=== PATIENT | male | born 1995 | race Caucasian/White ===

== ENCOUNTER 2019-02-17 05:34 | Inpatient (IN) | payer MEDICAID, OTHER ==
[~2019-02-17] VITALS: Ht 180.3 cm; Wt 90.9 kg
[~2019-02-17 05:34] MED LIST: FAMO-96 PO; IBUP800T48 PO
[2019-02-17 05:36] VITALS: Ht 180.3 cm; Wt 90.9 kg
[2019-02-17] MEDS ORDERED: IBUPROFEN 800 MG TAB PO ONE (06:30)
[2019-02-17] MEDS ORDERED: ONDANSETRON 4 MG INJ IV STA (07:27)
[2019-02-17] MEDS ORDERED: morphine 4 MG/ML VIAL IV STA (07:27)
--- NOTE | 2019-02-17 07:49 | ERD ---
ER Documentation Chief Complaint Chief Complaint fell face 1st from skateboarding yesterday AM; R arm hurts HPI 23-year-old male presenting with pain to his right elbow after a fall off a s kateboard. Patient also has some pain to his right hand. Left hand dominant. This happened an hour prior to my evaluation he has not taken medications for symptoms. Denies medical problems. NKDA. Surgical history denies. Social history smokes , one occasionally. ROS All systems reviewed and are negative except as per history of present illness. Medications Home Meds Active Scripts Famotidine* (Pepcid*) 20 Mg Tablet, 20 MG PO BID, #20 TAB Prov:WU DODD PA-C 02/16/16 Ibuprofen* (Motrin*) 800 Mg Tab, 800 MG PO Q6H PRN for PAIN AND OR ELEVATED TEMP, #30 TAB Prov:MARY BURGESS AGILE JAVA DEVELOPER 11/25/15 Allergies Allergies: Coded Allergies: No Known Allergy (Unverified , 02/16/16) PMhx/Soc Medical and Surgical Hx: pt denies Medical Hx, pt denies Surgical Hx Hx Alcohol Use: No Hx Substance Use: No Hx Tobacco Use: No Smoking Status: Never smoker FmHx Family History: No diabetes, No coronary disease, No other Physical Exam Vitals Vital Signs Date Temp Pulse Resp B/P (MAP) Pulse Ox O2 O2 Flow FiO2 Time Delivery Rate 02/17/19 98.0 69 18 131/78 98 05:36 (95) Physical Exam GENERAL: The patient is well-appearing, well-nourished, in no acute distress CHEST: Clear to auscultation bilaterally. There are no rales, wheezes or rhonchi. HEART: Regular rate and rhythm. No murmurs, clicks, rubs or gallops. EXTREMITIES: Tender to palpation to right elbow. Limited range of motion secondary to pain. Compartments soft to the distal extremity pulses intact. NEUROLOGIC: Alert and oriented. Cranial nerves II through XII intact. Motor strength in all 4 extremities with 5 out of 5 strength. Sensation grossly intact. Normal speech and gait. SKIN: Extensive swelling noted over the olecranon with superficial abrasions. Results 24 hrs Current Medications Medications Dose Sig/Vick Start Time Status Last (Trade) Ordered Route PRN Stop Time Admin Dose Reason Admin Ibuprofen 800 mg ONCE ONCE 02/17/19 DC 02/17/19 (Motrin) PO 06:30 06:23 02/17/19 06:31 Morphine 4 mg ONCE STAT 02/17/19 DC Sulfate IV 07:27 (morphine) 02/17/19 07:30 Ondansetron 4 mg ONCE STAT 02/17/19 DC HCl (Zofran IV 07:27 Inj) 02/17/19 07:30 Procedures/MDM DIAGNOSTIC IMAGING REPORT Patient: GREYSON ARANDA JR : 1995 Age: 23 Sex: M MR #: [id number] DOS: 02/17/19 0611 Ordering MD: KEDAR SPEARS PA-C Location: [facility] Room/Bed: PROCEDURE: XR Right Elbow. CLINICAL INDICATION: Right elbow pain. Status post injury. TECHNIQUE: 4 views of the right elbow are available for review COMPARISON: None available FINDINGS: There is a transverse intra-articular fracture of the proximal olecranon with dye stasis of the fracture fragments measuring 1.67 meters. There is a displaced medial butterfly fragment. Extensive overlying soft tissue swelling is seen. There is minimal prominence of the anterior fat pad. IMPRESSION: Comminuted displaced intra-articular proximal olecranon fracture DIAGNOSTIC IMAGING REPORT Patient: GREYSON ARANDA JR : 1995 Age: 23 Sex: M MR #: [id number] DOS: 02/17/19 0611 Ordering MD: KEDAR SPEARS PA-C Location: [facility] Room/Bed: PROCEDURE: XR right Wrist. CLINICAL INDICATION: wrist pain TECHNIQUE: AP, lateral and oblique views of the wrist were performed. COMPARISON: No prior studies are available for comparison. FINDINGS: There is a nondisplaced fracture involving the superior medial aspect of the triquetrum. No additional fractures are clearly identified The bones appear well mineralized. The joint spaces are well maintained. The soft tissues are normal. IMPRESSION: There is a nondisplaced fracture involving the superior medial aspect of the triquetrum. This could be further characterized with CT if indicated. No additional fractures are clearly identified. RPTAT:AAJJ ER Course: Dr. Strong was consulted for surgical intervention. Patient will be admitted for higher level care and surgical intervention. Preop studies were ordered and patient was given IV morphine. MDM: 23-year-old male presenting with findings consistent with olecranon f racture. Patient had a large displacement of 15.6 mm the patient will be admitted for surgical intervention under the care of Dr. Tolu Strong. Dr. Dakota Lipscomb will help facilitate with inpatient admission. Patient understands reason for admission. All questions answered at discharge. MARIAJOSE SPEARS PA-C Feb 17, 2019 07:49
[2019-02-17] MEDS ORDERED: ONDANSETRON 4 MG INJ IV PRN ×2 (08:30→12:30)
[2019-02-17] MEDS ORDERED: ACETAMINOPHEN 325 MG TAB PO PRN ×2 (08:30→12:30)
--- NOTE | 2019-02-17 12:13 | HP ---
Date/Time of Note Date/Time of Note DATE: 02/17/19 TIME: 12:08 Assessment/Plan VTE Prophylaxis SCD applied (from Nsg): Yes Pharmacological prophylaxis: LMWH Lines/Catheters IV Catheter Type (from Nrsg): Saline Lock Assessment/Plan Hospital Course SUBJECTIVE: Lying in bed, currently having no pain. Right elbow with diffuse swelling/open skin with mild bleeding. OBJECTIVE: Vital signs-see below PHYSICAL EXAM: Constitutional: Adequately built,not in acute distress. HEENT: Head atraumatic and normocephalic. Eyes: Extraocular muscles intact. Anicteric sclerae. Pupils equal bilaterally, reactive to light. NECK: Supple without lymph node. CHEST: Clear and good breath sounds equally. No wheezing. No rhonchi. HEART: S1, S2. Regular rate and rhythm. ABDOMEN: Soft/non tender with no rebound tenderness. Bowel sounds were present. EXTREMITIES: Right elbow status post fall with swelling/bruising/open skin with mild bleeding. Normal pulses. NEUROLOGIC: Alert and oriented x3. No focal deficit. No sensory deficit. PSYCHOSOCIAL: No signs of depression. INTEGUMENTARY: No open wounds. ASSESSMENT AND PLAN:23 yo M w/ no PMH here after falling off a skateboard w/resultant Rt elbow fracture.. Comminuted displaced intra-articular proximal olecranon fracture -Orthopedic consultation with Dr. Strong has been already requested. -Continue nonweightbearing, pain control, dvt ppx -We will give empiric ABX in light of open wounds Leukocytosis, likely reactive to fracture -Monitor. DVT prophylaxis: Lovenox Rest of the management depend on clinical course. Approximately 60-minute was spent on this history and physical. Patient was seen in collaboration with Result Diagram: 02/17/19 0740 Results 24hrs Laboratory Tests Test 02/17/19 07:40 White Blood Count 12.0 H Red Blood Count 5.13 Hemoglobin 14.8 Hematocrit 44.3 Mean Corpuscular Volume 86.4 Mean Corpuscular Hemoglobin 28.8 L Mean Corpuscular Hemoglobin Concent 33.4 Red Cell Distribution Width 12.0 Platelet Count 232 Mean Platelet Volume 10.8 H Immature Granulocytes % 0.300 Neutrophils % 71.6 Lymphocytes % 21.1 Monocytes % 5.9 Eosinophils % 0.6 Basophils % 0.5 Nucleated Red Blood Cells % 0.0 Immature Granulocytes # 0.040 H Neutrophils # 8.6 H Lymphocytes # 2.5 Monocytes # 0.7 Eosinophils # 0.1 Basophils # 0.1 Nucleated Red Blood Cells # 0.0 Prothrombin Time 12.8 Prothrombin Time Ratio 1.0 INR International Normalized Ratio 0.95 Activated Partial Thromboplast Time 27.0 HPI/ROS Admit Date/Time Admit Date/Time Feb 17, 2019 at 08:21 Hx of Present Illness 23-year-old male with no past medical history, who presented to the emergency room with right elbow pain/swelling after he fell off a skating board. Reji bourne's x-ray showed Comminuted displaced intra-articular proximal olecranon fracture. Orthopedic consultation was called from the emergency room. Patient was given pain medications. Patient denied seeing any metal objects on the fracture site. Patient's labs showed white count 12,000 otherwise unremarkable. No fevers. Patient denied any head trauma. He denied chest pain, palpitation, shortness of breath, nausea, vomiting, fever, chills, bowel or bladder incontinence or other constitutional symptoms. ROS A 12 point review of system was assessed and is negative other than what is mentioned in the HPI. PMH/Family/Social Past Medical History None Medications Current Medications Ondansetron HCl (Zofran Inj) 4 mg BRIDGE ORDER PRN IV NAUSEA/VOMITING; Start 02/17/19 at 08:30; Stop 02/18/19 at 08:29 Acetaminophen (Tylenol Tab) 650 mg ER BRIDGE PRN PO .MILD PAIN 1-3 OR TEMP; Start 02/17/19 at 08:30; Stop 02/18/19 at 08:29 Coded Allergies: No Known Allergy (Unverified , 02/16/16) Past Surgical History None Social History Denied history of alcohol, smoking or illicit drug use Smoking Status: Never smoker Exam/Review of Systems Vital Signs Vitals Vital Signs Date Temp Pulse Resp B/P (MAP) Pulse Ox O2 O2 Flow FiO2 Time Delivery Rate 02/17/19 97.9 85 16 122/59 99 Room Air 11:09 (80) LYNSEY TREVIZO NP Feb 17, 2019 12:13
[2019-02-17 12:16] VITALS: BP 114/55; PULSE 80; RESP 18
[2019-02-17] MEDS ORDERED: morphine 2 MG INJ IV PRN (12:30)
[2019-02-17] MEDS ORDERED: DOCUSATE SODIUM 100 MG CAP PO PRN (12:30)
[2019-02-17] MEDS: FAMOTIDINE 20 MG TAB PO SCH ×2 (12:30→21:35)
[2019-02-17] MEDS ORDERED: NACL 0.9% 3 ML SYG IV SCH (12:30)
[2019-02-17] MEDS: SOD CHLORIDE 0.9% 1,000 ML IV SCH (13:00)
[2019-02-17 15:05] VITALS: BP 118/71; PULSE 69; RESP 19
[2019-02-17] MEDS: CEFAZOLIN 1 GM/50 ML (PMX) 50 ML IVPB SCH ×2 (15:21→21:35)
[2019-02-17] MEDS: IBUPROFEN 600 MG TAB PO SCH ×2 (17:53→23:57)
[2019-02-17 20:35] VITALS: BP 120/61; PULSE 74; RESP 18
[2019-02-18] MEDS: SOD CHLORIDE 0.9% 1,000 ML IV SCH ×2 (01:44→15:20)
[2019-02-18 02:18] VITALS: BP 103/57; PULSE 63; RESP 18
[2019-02-18] MEDS: CEFAZOLIN 1 GM/50 ML (PMX) 50 ML IVPB SCH ×3 (05:54→22:02)
[2019-02-18] MEDS: IBUPROFEN 600 MG TAB PO SCH ×4 (05:55→23:51)
[2019-02-18 08:18] VITALS: BP 112/63; PULSE 56; RESP 18
[2019-02-18] MEDS: ENOXAPARIN 40 MG/0.4 ML SYG SC SCH (09:00)
--- NOTE | 2019-02-18 11:03 | PN ---
Date/Time of Note Date/Time of Note DATE: 02/18/19 TIME: 11:01 Assessment/Plan VTE Prophylaxis Risk score (from Ns)>0 risk: 1 SCD applied (from Ns): No SCD contraindicated: other Pharmacological prophylaxis: LMWH Lines/Catheters IV [facility] Saline Lock Urinary Cath still in place: No Assessment/Plan Hospital Course SUBJECTIVE: No acute overnight episodes. Pending orthopedic evaluation OBJECTIVE: Vital signs-see below PHYSICAL EXAM: Constitutional: Adequately built,not in acute distress. HEENT: Head atraumatic and normocephalic. Eyes: Extraocular muscles intact. Anicteric sclerae. Pupils equal bilaterally, reactive to light. NECK: Supple without lymph node. CHEST: Clear and good breath sounds equally. No wheezing. No rhonchi. HEART: S1, S2. Regular rate and rhythm. ABDOMEN: Soft/non tender with no rebound tenderness. Bowel sounds were present. EXTREMITIES: Right elbow status post fall with swelling/bruising/open skin with mild bleeding. Normal pulses. NEUROLOGIC: Alert and oriented x3. No focal deficit. No sensory deficit. PSYCHOSOCIAL: No signs of depression. INTEGUMENTARY: No open wounds. ASSESSMENT AND PLAN:23 yo M w/ no PMH here after falling off a skateboard w/resultant Rt elbow fracture.. Comminuted displaced intra-articular proximal olecranon fracture -Orthopedic consultation with Dr. Strong has been already requested=> and in case review -Continue nonweightbearing, pain control, dvt ppx -cont.empiric ABX in light of open wounds Leukocytosis, likely reactive to fracture -Resolved DVT prophylaxis: Lovenox Disposition: Follow-up orthopedic recommendations Patient was seen in collaboration with Result Diagram: 02/18/19 0638 02/18/19 0638 Results 24hrs Laboratory Tests Test 02/18/19 06:38 White Blood Count 9.4 # Red Blood Count 4.76 Hemoglobin 13.6 L Hematocrit 41.1 L Mean Corpuscular Volume 86.3 Mean Corpuscular Hemoglobin 28.6 L Mean Corpuscular Hemoglobin Concent 33.1 Red Cell Distribution Width 11.9 Platelet Count 207 Mean Platelet Volume 11.4 H Immature Granulocytes % 0.400 Neutrophils % 52.4 Lymphocytes % 38.1 Monocytes % 7.4 Eosinophils % 1.2 Basophils % 0.5 Nucleated Red Blood Cells % 0.0 Immature Granulocytes # 0.040 H Neutrophils # 4.9 Lymphocytes # 3.6 H Monocytes # 0.7 Eosinophils # 0.1 Basophils # 0.1 Nucleated Red Blood Cells # 0.0 Sodium Level 143 Potassium Level 3.9 Chloride Level 109 Carbon Dioxide Level 25 Anion Gap 9 Blood Urea Nitrogen 9 Creatinine 0.86 Est Glomerular Filtrat Rate mL/min > 60 Glucose Level 92 Calcium Level 9.3 Magnesium Level 2.1 Exam/Review of Systems Exam Vitals Vital Signs Date Temp Pulse Resp B/P (MAP) Pulse Ox O2 O2 Flow FiO2 Time Delivery Rate 02/18/19 97.8 56 18 112/63 97 Room Air 08:18 (79) Intake and Output 02/17/19 02/17/19 02/18/19 1515:00 23:00 07:00 IntakeIntake Total 350 ml 995 ml BalanceBalance 350 ml 995 ml Results Results 24hrs Laboratory Tests Test 02/18/19 06:38 White Blood Count 9.4 # Red Blood Count 4.76 Hemoglobin 13.6 L Hematocrit 41.1 L Mean Corpuscular Volume 86.3 Mean Corpuscular Hemoglobin 28.6 L Mean Corpuscular Hemoglobin Concent 33.1 Red Cell Distribution Width 11.9 Platelet Count 207 Mean Platelet Volume 11.4 H Immature Granulocytes % 0.400 Neutrophils % 52.4 Lymphocytes % 38.1 Monocytes % 7.4 Eosinophils % 1.2 Basophils % 0.5 Nucleated Red Blood Cells % 0.0 Immature Granulocytes # 0.040 H Neutrophils # 4.9 Lymphocytes # 3.6 H Monocytes # 0.7 Eosinophils # 0.1 Basophils # 0.1 Nucleated Red Blood Cells # 0.0 Sodium Level 143 Potassium Level 3.9 Chloride Level 109 Carbon Dioxide Level 25 Anion Gap 9 Blood Urea Nitrogen 9 Creatinine 0.86 Est Glomerular Filtrat Rate mL/min > 60 Glucose Level 92 Calcium Level 9.3 Magnesium Level 2.1 Medications Medication Current Medications Sodium Chloride 1,000 ml @ 75 mls/hr [id number] IV Last administered on 02/18/19at 01:44; Admin Dose 75 MLS/HR; Start 02/17/19 at 12:13 IV Flush (NS 3 ml) 3 ml PER PROTOCOL IV ; Start 02/17/19 at 12:30 Ondansetron HCl (Zofran Inj) 4 mg Q6H PRN IV NAUSEA/VOMITING; Start 02/17/19 at 12:30 Acetaminophen (Tylenol Tab) 650 mg Q6H PRN PO .PAIN 1-3 OR TEMP; Start 02/17/19 at 12:30 Morphine Sulfate (morphine) 2 mg Q4H PRN IV .SEVERE PAIN 7-10; Start 02/17/19 at 12:30 Docusate Sodium (Colace) 100 mg Q12H PRN PO .CONSTIPATION; Start 02/17/19 at 12:30 Enoxaparin Sodium (Lovenox) 40 mg DAILY SC ; Start 02/18/19 at 09:00 Cefazolin Sodium 50 ml @ 100 mls/hr Q8 IVPB Last administered on 02/18/19at 05:54; Admin Dose 100 MLS/HR; Start 02/17/19 at 14:00 Ibuprofen (Motrin) 600 mg Q6 PO Last administered on 02/18/19at 05:55; Admin Dose 600 MG; Start 02/17/19 at 18:00; Stop 02/19/19 at 12:01 Famotidine (Pepcid) 20 mg BID PO Last administered on 02/17/19at 21:35; Admin Dose 20 MG; Start 02/17/19 at 12:30 LYNSEY TREVIZO NP Feb 18, 2019 11:02
[2019-02-18] MEDS: FAMOTIDINE 20 MG TAB PO SCH ×2 (11:38→20:22)
--- NOTE | 2019-02-18 12:46 | QN ---
Documentation Comment Patient and family getting upset for awaiting for orthopedic evaluation. They are planning on leaving AGAINST MEDICAL ADVICE. I spoke with Dr. Strong on the phone who told me that he will see patient in the next 2 to 4 hours. This message was conveyed to patient and family and they agreed to stay. LYNSEY TREVIZO NP Feb 18, 2019 12:46
[2019-02-18 14:25] VITALS: BP 112/63; PULSE 57; RESP 18
--- NOTE | 2019-02-18 20:02 | CONS ---
DATE OF ADMISSION: 02/17/2019 DATE OF CONSULTATION: ORTHOPEDIC SURGICAL CONSULTATION HISTORY OF PRESENT ILLNESS: The patient is a 23-year-old left hand dominant male who was admitted on 02/17/2019 when he came to the emergency room complaining of painful swelling and deformity involvin g his right elbow. He obviously had sustained an injury to his right elbow after falling off his ska teboard. Following initial evaluation in the emergency room, the right elbow was immobilized in a long arm pos terior splint and the patient was admitted. PHYSICAL EXAMINATION: My examination revealed a 23-year-old male who was not in any acute distress. His right upper extremity was immobilized in a posterior long arm posterior splint. There was no ob vious neurovascular compromise; however, he seems to have some weakness in the interosseous muscles o f the right hand. DIAGNOSTIC STUDIES: X-rays of the right elbow revealed a displaced olecranon fracture of the right e lbow. DIAGNOSTIC IMPRESSION: Olecranon fracture of the right elbow, displaced. TREATMENT PLAN: To surgery for open reduction and internal fixation in earliest convenience. Dictated By: BAILEY SHEIKH MD IK/NTS Conf#: [id number] DID#: [id number] CC: LONNIE HOWELL MD;*EndCC*
[2019-02-18 20:31] VITALS: BP 121/57; PULSE 60; RESP 18
[2019-02-19] VITALS (15 sets, daily range): BP systolic 104–126; BP diastolic 49–72; PULSE 60–82; RESP 13–23
[2019-02-19] MEDS: CEFAZOLIN 1 GM/50 ML (PMX) 50 ML IVPB SCH ×3 (05:35→23:43)
[2019-02-19] MEDS: SOD CHLORIDE 0.9% 1,000 ML IV SCH (05:35)
[2019-02-19] MEDS: IBUPROFEN 600 MG TAB PO SCH (05:36)
[2019-02-19] MEDS: FAMOTIDINE 20 MG TAB PO SCH ×2 (08:48→21:26)
[2019-02-19] MEDS: ENOXAPARIN 40 MG/0.4 ML SYG SC SCH (08:48)
--- NOTE | 2019-02-19 12:24 | PN ---
Date/Time of Note Date/Time of Note DATE: 02/19/19 TIME: 12:21 Assessment/Plan VTE Prophylaxis Risk score (from Ns)>0 risk: 1 SCD applied (from Ns): No SCD contraindicated: other Pharmacological prophylaxis: LMWH Lines/Catheters [facility] Saline Lock Urinary Cath still in place: No Assessment/Plan Hospital Course SUBJECTIVE: No acute overnight episodes. For ORIF today OBJECTIVE: Vital signs-see below PHYSICAL EXAM: Constitutional: Adequately built,not in acute distress. HEENT: Head atraumatic and normocephalic. Eyes: Extraocular muscles intact. Anicteric sclerae. Pupils equal bilaterally, reactive to light. NECK: Supple without lymph node. CHEST: Clear and good breath sounds equally. No wheezing. No rhonchi. HEART: S1, S2. Regular rate and rhythm. ABDOMEN: Soft/non tender with no rebound tenderness. Bowel sounds were present. EXTREMITIES: Right elbow status post fall with swelling/bruising/open skin with mild bleeding. Normal pulses. NEUROLOGIC: Alert and oriented x3. No focal deficit. No sensory deficit. PSYCHOSOCIAL: No signs of depression. INTEGUMENTARY: No open wounds. ASSESSMENT AND PLAN:23 yo M w/ no PMH here after falling off a skateboard w/resultant Rt elbow fracture.. Acute Displaced Right olecranon fracture -For ORIF today -post op abx,atc,weightbearing per ortho -pain control Leukocytosis, likely reactive to fracture -Resolved DVT prophylaxis: Lovenox Disposition: Follow-up orthopedic recommendations pot operatively Patient was seen in collaboration with Given patient's medical condition, patient is at a low to intermediate risk for any untoward medical events for surgery. However, benefit likely outweigh risks and recommended to have surgical intervention. Result Diagram: 02/18/19 0638 02/18/19 0638 Exam/Review of Systems Exam Vitals Vital Signs Date Temp Pulse Resp B/P (MAP) Pulse Ox O2 O2 Flow FiO2 Time Delivery Rate 02/19/19 98.8 80 18 104/66 96 Room Air 09:35 (79) Intake and Output 02/18/19 02/18/19 02/19/19 1515:00 23:00 07:00 IntakeIntake Total 1645 ml 1100 ml BalanceBalance 1645 ml 1100 ml Medications Medication Current Medications Sodium Chloride 1,000 ml @ 75 mls/hr [id number] IV Last administered on 02/19/19at 05:35; Admin Dose 75 MLS/HR; Start 02/17/19 at 12:13 IV Flush (NS 3 ml) 3 ml PER PROTOCOL IV ; Start 02/17/19 at 12:30 Ondansetron HCl (Zofran Inj) 4 mg Q6H PRN IV NAUSEA/VOMITING; Start 02/17/19 at 12:30 Acetaminophen (Tylenol Tab) 650 mg Q6H PRN PO .PAIN 1-3 OR TEMP; Start 02/17/19 at 12:30 Morphine Sulfate (morphine) 2 mg Q4H PRN IV .SEVERE PAIN 7-10; Start 02/17/19 at 12:30 Docusate Sodium (Colace) 100 mg Q12H PRN PO .CONSTIPATION; Start 02/17/19 at 12:30 Enoxaparin Sodium (Lovenox) 40 mg DAILY SC ; Start 02/18/19 at 09:00 Cefazolin Sodium 50 ml @ 100 mls/hr Q8 IVPB Last administered on 02/19/19at 05:35; Admin Dose 100 MLS/HR; Start 02/17/19 at 14:00 Famotidine (Pepcid) 20 mg BID PO Last administered on 02/18/19at 20:22; Admin Dose 20 MG; Start 02/17/19 at 12:30 LYNSEY TREVIZO NP Feb 19, 2019 12:24
[2019-02-19] MEDS ORDERED: POLYMYXIN/BACITRACIN 1L IRRIG ONE (12:28)
[2019-02-19] MEDS ORDERED: BUPIVACAINE 0.25%/EPI (SDV) 30 ML INJ ONE (12:28)
--- NOTE | 2019-02-19 12:32 | HPN ---
Date/Time of Note Date/Time of Note DATE: 02/19/19 TIME: 12:31 JAMIE SHEIKH MD Feb 19, 2019 12:32
[2019-02-19] MEDS ORDERED: PROPOFOL 20 ML ONE (12:43)
[2019-02-19] MEDS ORDERED: MIDAZOLAM 1 MG/ML 2 ML INJ ONE ×2 (12:43→15:21)
[2019-02-19] MEDS ORDERED: ROCURONIUM 50 MG INJ ONE (12:43)
[2019-02-19] MEDS ORDERED: FENTAnyl 50 MCG/ML VIAL ONE ×2 (12:44)
[2019-02-19] MEDS ORDERED: LIDOCAINE 1% (MDV) 20 ML INJ ONE (13:00)
--- NOTE | 2019-02-19 13:52 | PREAC ---
Date/Time of Note Date/Time of Note DATE: 02/19/19 TIME: 12;10 Anesthesia Eval and Record Evaluation Time Pre-Procedure Interview DATE: 02/19/19 TIME: 13:29 Age 23 Sex male NPO: 8 hrs Preoperative diagnosis right =Elbow olecronon fracture Planned procedure ORIF Right Olecronon Past Medical History Past Medical History: None Surgery & Anesthesia Issues No known issue Meds Anticoagulation: No Beta Yamileth within 24 hr: No Reason Beta Yamileth not given: Pt. not on B-Yamileth Active Scripts Famotidine* (Pepcid*) 20 Mg Tablet, 20 MG PO BID, #20 TAB Prov:WU DODD PA-C 02/16/16 Ibuprofen* (Motrin*) 800 Mg Tab, 800 MG PO Q6H PRN for PAIN AND OR ELEVATED TEMP, #30 TAB Prov:MARY BURGESS TELEVISION REPORTER 11/25/15 Current Medications Sodium Chloride 1,000 ml @ 75 mls/hr [id number] IV Last administered on 02/19/19at 05:35; Admin Dose 75 MLS/HR; Start 02/17/19 at 12:13 IV Flush (NS 3 ml) 3 ml PER PROTOCOL IV ; Start 02/17/19 at 12:30 Ondansetron HCl (Zofran Inj) 4 mg Q6H PRN IV NAUSEA/VOMITING; Start 02/17/19 at 12:30 Acetaminophen (Tylenol Tab) 650 mg Q6H PRN PO .PAIN 1-3 OR TEMP; Start 02/17/19 at 12:30 Morphine Sulfate (morphine) 2 mg Q4H PRN IV .SEVERE PAIN 7-10; Start 02/17/19 at 12:30 Docusate Sodium (Colace) 100 mg Q12H PRN PO .CONSTIPATION; Start 02/17/19 at 12:30 Enoxaparin Sodium (Lovenox) 40 mg DAILY SC ; Start 02/18/19 at 09:00 Cefazolin Sodium 50 ml @ 100 mls/hr Q8 IVPB Last administered on 02/19/19at 05:35; Admin Dose 100 MLS/HR; Start 02/17/19 at 14:00 Famotidine (Pepcid) 20 mg BID PO Last administered on 02/18/19at 20:22; Admin Dose 20 MG; Start 02/17/19 at 12:30 Meds reviewed: Yes Allergies Coded Allergies: No Known Allergy (Unverified , 02/16/16) Allergies Reviewed: Yes Labs/Studies Labs Reviewed: Reviewed by anesthesiologist Result Diagram: 02/18/1963702/18/19637 test: N/A Pre-procedure Exam Last vitals Vital Signs Date Temp Pulse Resp B/P (MAP) Pulse Ox O2 O2 Flow FiO2 Time Delivery Rate 02/19/19 98.8 80 18 104/66 96 Room Air 09:35 (79) Airway: Adequate thyromental dist Mallampati: Mallampati III Teeth: Normal Lung: Normal Heart: Normal ASA Physical Status ASA physical status: 2 Emergency: None Planned Anesthetic General/MAC: ETT Planned Pain Management Single shot nerve block Pre-operative Attestations Prior to commencing anesthesia and surgery, the patient was re-evaluated, there was verification of: *The patient's identity *The results of appropriate recent lab work and preoperative vital signs *The above evaluation not changing prior to induction *Anesthetic plan, risk benefits, alternative and complications discussed with patient/family; questions answered; patient/family understands, accepts and wishes to proceed. KEISHA HAZEL MD Feb 19, 2019 13:40
[2019-02-19] MEDS ORDERED: LABETALOL HCL 20MG INJ IV PRN (14:00)
[2019-02-19] MEDS ORDERED: MIDAZOLAM 1 MG/ML 2 ML INJ IV PRN (14:00)
[2019-02-19] MEDS ORDERED: ALBUMIN HUMAN 5% 250 ML IV PRN (14:00)
[2019-02-19] MEDS ORDERED: ALBUTEROL 0.083% (NEB) 2.5 MG/3 ML AMP HHN PRN (14:00)
[2019-02-19] MEDS ORDERED: METOCLOPRAMIDE 10 MG INJ IV PRN (14:00)
[2019-02-19] MEDS ORDERED: HYDROmorphONE 1 MG/5 ML IV SYRINGE IV PRN (14:00)
[2019-02-19] MEDS ORDERED: morphine 2 MG INJ IV PRN (14:00)
[2019-02-19] MEDS ORDERED: KETOROLAC 30 MG INJ IV PRN (14:00)
[2019-02-19] MEDS ORDERED: MEPERIDINE 25 MG INJ IV PRN (14:00)
[2019-02-19] MEDS ORDERED: hydrALAzine 20 MG INJ IV PRN (14:00)
[2019-02-19] MEDS ORDERED: EPHEDrine 25 MG/5 ML SYG IV PRN (14:00)
[2019-02-19] MEDS ORDERED: IPRATROPIUM (NEB) 0.5 MG/2.5 ML AMP HHN PRN (14:00)
[2019-02-19] MEDS ORDERED: FENTAnyl 50 MCG/ML VIAL IV PRN (14:00)
[2019-02-19] MEDS ORDERED: DIPHENHYDRAMINE 50 MG INJ IV PRN (14:00)
[2019-02-19] MEDS ORDERED: ONDANSETRON 4 MG INJ IV PRN (14:00)
[2019-02-19] MEDS ORDERED: DEXAMETHASONE 4 MG/ML 5 ML INJ ONE (14:18)
[2019-02-19] MEDS ORDERED: ONDANSETRON 4 MG INJ ONE (14:18)
[2019-02-19] MEDS ORDERED: SUGAMMADEX SODIUM 200 MG/2 ML VIAL IV ONE (14:18)
[2019-02-19] MEDS ORDERED: BUPIVACAINE 0.25% (MPF) 30 ML INJ ONE (14:27)
[2019-02-19] MEDS ORDERED: ROPIVACAINE 0.2% 20 ML VIAL ONE (14:28)
[2019-02-19] MEDS ORDERED: morphine 4 MG/ML VIAL IV PRN (15:00)
[2019-02-19] MEDS ORDERED: HYDROCODONE/APAP (5/325) TAB PO PRN (15:00)
[2019-02-19] MEDS ORDERED: NACL 0.9% 3 ML SYG IV SCH (15:00)
--- NOTE | 2019-02-19 15:22 | SIPON ---
Date/Time of Note Date/Time of Note DATE: 02/19/19 TIME: 15:09 Operative Report Preoperative Diagnosis fracture of olecranon process of Rt. elbow Postoperative Diagnosis same Operation/Procedure Performed O.R.I.F. of olecranon fracture of Rt. elbow Surgeon see signature line administrative assistant data entry none Second assist: A Anesthesia: general Estimated blood loss: 10 - 50 ml's Transfusion Required none Specimen none Grafts/Implants k wires and flexible wiresnone Complications none JAMIE SHEIKH MD Feb 19, 2019 15:22
--- NOTE | 2019-02-19 15:42 | PAC ---
Date/Time of Note Date/Time of Note DATE: 02/19/19 TIME: 1620 Post-Anesthesia Notes Post-Anesthesia Note Last documented vital signs Vital Signs Date Temp Pulse Resp B/P (MAP) Pulse Ox O2 O2 Flow FiO2 Time Delivery Rate 02/19/19 98.8 80 18 104/66 96 Room Air 09:35 (79) Activity: WNL Respiratory function: WNL Cardiovascular function: WNL Mental status: Baseline Pain reasonably controlled: Yes Hydration appropriate: Yes Nausea/Vomiting absent: Yes KEISHA HAZEL MD Feb 19, 2019 15:42
[2019-02-19] MEDS: D5W-0.45 NACL + KCL 20 MEQ 1,000 ML IV SCH (17:16)
--- NOTE | 2019-02-19 18:16 | OPR ---
DATE OF OPERATION: 02/19/2019 PREOPERATIVE DIAGNOSIS: Olecranon fracture of the right elbow. POSTOPERATIVE DIAGNOSIS: Olecranon fracture of the right elbow. OPERATION PERFORMED: Open reduction and internal fixation of the olecranon fracture of the right elb ow. ANESTHESIA: General anesthesia. SURGEON: Bailey Sheikh MD PROCEDURE AND FINDINGS: Under general anesthesia, the patient was placed in supine position upon the operating table. A tourniquet was placed over the proximal portion of the right arm and was inflate d up to 250 mmHg prior to the procedure. The right elbow was approached through the posterior midline longitudinal incision. By blunt and sha rp dissection, the obvious fracture involving the olecranon of the right elbow along with the proxima l shaft of the right ulna was exposed. First, a small drill opening was made using a proper size dri ll. An 18 gauge flexible wire was placed through this opening and ready for further procedure. Atte ntion was then directed to the obvious fracture. By blunt and sharp dissection, the fracture margin was clearly identified and exposed and cleared of any blood clots. With the elbow in extension, the fracture was reduced to exact alignment and then this was held with bone clamp. Two K-wire was then introduced to the fractured segment and then into the main intramedullary space of the proximal ulna with the fracture in a reduced position. The previously threaded flexible wire was then put around t his 2 parallel K-wire and was in the [id number] position and then this flexible wire was tighten ed. After confirming satisfactory alignment of the fracture and proper position of the fixation K-wi res, the further repair of the soft tissue was carried out around the fracture site and then K-wire w as bent at the proximal portion and was shortened. After confirming satisfactory alignment of the fr acture and proper position of the fixation device and after irrigation and hemostasis, closure of the incision was carried out using 0 Vicryl for muscle and fascia and 2-0 Vicryl for subcutaneous tissue s. Final skin closure was carried out with skin checo. Usual sterile pressure dressings were appl ied. The patient tolerated the entire procedure very well and was sent to the recovery room in good condit ion. Dictated By: BAILEY SHEIKH MD IK/NTS Conf#: [id number] DID#: [id number] CC: LONNIE HOWELL MD;*[facility]*
[2019-02-20 02:22] VITALS: BP 117/58; PULSE 72; RESP 18
[2019-02-20] MEDS: D5W-0.45 NACL + KCL 20 MEQ 1,000 ML IV SCH (06:40)
[2019-02-20 08:10] VITALS: BP 119/66; PULSE 66; RESP 18
[2019-02-20] MEDS: ENOXAPARIN 40 MG/0.4 ML SYG SC SCH (09:00)
[2019-02-20] MEDS: FAMOTIDINE 20 MG TAB PO SCH (09:13)
[2019-02-20] MEDS: CEFAZOLIN 1 GM/50 ML (PMX) 50 ML IVPB SCH (09:16)
--- NOTE | 2019-02-20 11:19 | PDOCDIS ---
Discharge Instructions CONDITION [id number] Patient Condition: [id number] Stable HOME CARE INSTRUCTIONS: [id number] Diet Instructions: [id number] Regular FOLLOW UP/APPOINTMENTS Follow-up Plan Nonweightbearing on right elbow. Please go to Dr. Strong's office in 10 days for follow-up. If you need physical therapy at that time, Dr. Strong will refer you for outpatient physical therapy. Tolu Strong MD Specialty Orthopedic Surgery Comments Office Address [address] [place] [address] Office Follow with primary care physician in 1 week LYNSEY TREVIZO NP Feb 20, 2019 11:19
[2019-02-20] MEDS ORDERED: ASPI-817 PO (11:22)
[2019-02-20] MEDS ORDERED: HYDR-4011 PO (11:22)
--- NOTE | 2019-02-20 11:25 | DS ---
Date/Time of Note Date/Time of Note DATE: 02/20/19 TIME: 11:24 Discharge Summary Admission/Discharge Info Admit Date/Time Feb 17, 2019 at 08:21 Discharge Date/Time Discharge Diagnosis Acute Displaced Right olecranon fracture. s/p ORIF Patient Condition: Stable Consults Dr. Strong, orthopedics Procedures 02/19/2019: OPERATION PERFORMED: Open reduction and internal fixation of the olecranon fracture of the right elbow. Hx of Present Illness 23-year-old male with no past medical history, who presented to the emergency room with right elbow pain/swelling after he fell off a skating board. Patient's x-ray showed Comminuted displaced intra-articular proximal olecranon fracture. Orthopedic consultation was called from the emergency room. Patient was given pain medications. Patient denied seeing any metal objects on the fracture site. Patient's labs showed white count 12,000 otherwise unremarkable. No fevers. Patient denied any head trauma. He denied chest pain, palpitation, shortness of breath, nausea, vomiting, fever, chills, bowel or bladder incontinence or other constitutional symptoms. Hospital Course 23 yo M w/ no PMH here after falling off a skateboard w/resultant Rt elbow fracture.. Patient underwent ORIF of right displaced olecranon fracture on 02/19/2019. Postoperative course was uneventful. Patient with no further pain. Surgical site intact. He is tolerating diet and activities well. At this time, as per Dr. Strong's recommendation, patient does not need any inpatient physical therapy evaluation and he should be nonweightbearing on right upper extremity. This was instructed to the patient. Patient to follow-up with Dr. Strong's office in 10 days and at that time if indicated Dr. Strong will provide him with outpatient physical therapy prescription. Patient was given pain medication and aspirin prophylaxis on discharge. Patient verbalized understanding. Approximately 60-minute was spent on coordinating the discharge on this patient. Patient was seen in collaboration with Dr. Hunter. Home Meds Active Scripts Famotidine* (Pepcid*) 20 Mg Tablet, 20 MG PO BID, #20 TAB Prov:WU DODD PA-C 02/16/16 Ibuprofen* (Motrin*) 800 Mg Tab, 800 MG PO Q6H PRN for PAIN AND OR ELEVATED TEMP, #30 TAB Prov:MARY BURGESS TAX MANAGER CPA 11/25/15 Follow-up Plan Nonweightbearing on right elbow. Please go to Dr. Strong's office in 10 days for follow-up. If you need physical therapy at that time, Dr. Strong will refer you for outpatient physical therapy. Tolu Strong MD Specialty Orthopedic Surgery Comments Office Address [address] [place] [address] Office Follow with primary care physician in 1 week Primary Care Provider Care Physician No Primary Pending Labs Laboratory Tests Test 02/20/19 05:14 White Blood Count 13.0 10^3/ul (4.8-10.8) Red Blood Count 4.36 10^6/ul (4.70-6.10) Hemoglobin 13.0 g/dl (14.0-18.0) Hematocrit 37.2 % (42.0-52.0) Mean Corpuscular Volume 85.3 fl (82.0-101.0) Mean Corpuscular Hemoglobin 29.8 pg (29.0-33.0) Mean Corpuscular Hemoglobin Concent 34.9 g/dl (32.0-37.0) Red Cell Distribution Width 11.4 % (11.5-14.5) Platelet Count 227 10^3/UL (140-415) Mean Platelet Volume 11.1 fl (7.4-10.4) Immature Granulocytes % 0.200 % (0.001-0.429) Neutrophils % 75.1 % (39.0-77.0) Lymphocytes % 18.0 % (15.0-51.0) Monocytes % 6.5 % (0.0-11.0) Eosinophils % 0.0 % (0.0-7.0) Basophils % 0.2 % (0.0-2.0) Nucleated Red Blood Cells % 0.0 /100WBC (0.0-0.0) Immature Granulocytes # 0.030 10^3/ul (0.0-0.031) Neutrophils # 9.8 10^3/ul (1.6-7.5) Lymphocytes # 2.4 10^3/ul (0.8-2.9) Monocytes # 0.9 10^3/ul (0.3-0.9) Eosinophils # 0.0 10^3/ul (0.0-0.5) Basophils # 0.0 10^3/ul (0.0-0.1) Nucleated Red Blood Cells # 0.0 10^3/ul (0.0-0.0) Sodium Level 142 mmol/L (135-144) Potassium Level 4.1 mmol/L (3.5-5.1) Chloride Level 108 mmol/L (97-110) Carbon Dioxide Level 25 mmol/L (21-31) Anion Gap 9 (5-13) Blood Urea Nitrogen 10 mg/dl (7-20) Creatinine 0.75 mg/dl (0.61-1.24) Est Glomerular Filtrat Rate mL/min > 60 mL/min (>60) Glucose Level 132 mg/dl (70-220) Calcium Level 9.5 mg/dl (8.4-10.2) LYNSEY TREVIZO V. TAX MANAGER CPA Feb 20, 2019 11:25
== END 2019-02-20 12:25 | disposition home or self-care (01) | DRG 512 ==
LOC: FTE 05:34 → PP2 08:21
PROVIDERS: ADMIT Internal Medicine; ATTEND Internal Medicine
PROC: 0PSK04Z Reposition Right Ulna with Internal Fixation Device, Open Approach (ICD-10-PCS; principal; 2019-02-19 12:00)
DX: S52.031A Displaced fracture of olecranon process with intraarticular extension of right ulna, initial encounter for closed fracture (principal); W19.XXXA Unspecified fall, initial encounter; Y93.51 Activity, roller skating (inline) and skateboarding
CPT/HCPCS: 71045; 73070; 73200; 80048; 83735; 85025; 85610; 85730; 93005; 96374; 96375; C1713; J0690; J1100; J1170; J1650; J2250; J2270; J2405; J2795; J3010; J3480; J7030